=== PATIENT | female | born 1960 | race Caucasian/White ===

== ENCOUNTER → 2020-07-02 08:38 | Outpatient (BNVA) | payer BC, SELFPAY | PROVIDERS: Family Provider Nurse Practitioner; PCP Nurse Practitioner; Visit Provider Nurse Practitioner | DX: D72.9 Disorder of white blood cells, unspecified (principal) | CPT/HCPCS: 85025 ==

== ENCOUNTER → 2020-08-07 16:55 | Outpatient (BNVA) | payer BC, SELFPAY | PROVIDERS: PCP Nurse Practitioner; Visit Provider Surgery | DX: Z11.59 Encounter for screening for other viral diseases (principal) | CPT/HCPCS: 87635 ==

== ENCOUNTER 2020-08-13 06:10 | Day surgery (SDC) | payer BC, SELFPAY ==
[2020-08-07 12:37] VITALS: BMI 29.9
[2020-08-13 06:30] VITALS: BP 119/68; PULSE 62; RESP 18; TEMP 36.6; O2SAT 98
[2020-08-13] MEDS: sodium chloride 0.9% 1,000 ML 30 ML IV (06:47)
--- NOTE | 2020-08-13 06:54 | ANES.PREANE2 ---
Pre-Anesthetic Assessment Pre-Anesthetic Assessment: Height/Weight: Height 1.65 m Weight 81.647 kg Temp Pulse Resp BP Pulse Ox 97.8 F 62 18 119/68 98 08/13/20 06:30 08/13/20 06:30 08/13/20 06:30 08/13/20 06:30 08/13/20 06:30 Preop Diagnosis: Screening Proposed Procedure: Operation Date: 08/13/20 07:00 Proposed Procedures p Colonoscopy 78585 Z12.11(Not Applicable) - Boy Blandon MD Familial anesthetic complications: None Was Beta Sj taken within 24 hours: N/A Last intake: Intake Last Liquid Date 08/12/20 Last Liquid Time 22:00 Last Solid Date 08/11/20 Last Solid Time 18:00 Social: Social History: No alcohol and No tobacco Exam: Pre-Anes Outpt Exam: alert, oriented x 3, clear to auscultation bilaterally and regular rate & rhythm Airway: Cervical ROM: WNL MP: 3 Dentition: Full Pulmonary: Comments: hx bronchial asthma 2 years ago ( no issues since or before) Metabolic: Metabolic: Thyroid Anesthetic Plan: ASA status: 2 Anesthesia: MAC Risk of > 500 ml blood loss (7ml/kg in children): No Meds/Allergies Current Medications: Current Medications Generic Name Dose Route Start Last Admin Trade Name Freq PRN Reason Stop Dose Admin Sodium Chloride 1,000 mls @ 30 ml s/hr 08/13/20 06:15 08/13/20 06:47 Sodium Chloride 0.9% IV 08/14/20 06:14 30 mls/hr .Q24H ARABELLA Administration PFSH Anesthesia PFSH: Medical History (Updated 07/04/20 @ 11:05 by HÉCTOR Gunter) Adult onset hypothyroidism Vitamin D deficiency Surgical History (Updated 07/04/20 @ 11:08 by HÉCTOR Gunter) History of dilation and curettage 2003,2006 History of hysterectomy partial 2007 Family History Other Cancer Diabetes FH: CVA (cerebrovascular accident) Hypertension Social History Smoking and tobacco status: never smoked Second hand smoke exposure: No Smoking risk assessment/counseling performed?: No Alcohol intake: never Desire information about alcohol rehabilitation?: No Counseling given: No Desire information about substance/drug rehabilitation?: No Counseling given: No Adopted: No Caregiver/support person: No Lives independently: Yes Marital status: Single Number of children: 3 History of recent travel: No Current gender identity: Female Data Anesthesia Cardiac Studies: No Data to Display
--- NOTE | 2020-08-13 07:00 | PM.HP ---
Providers/Chief Complaint Primary Care Provider: HÉCTOR Gunter Chief Complaint: screening History of Present Illness Avis Clemons is a 60 year old female with no family history of colon cancer who was on one occasion was noted to be anemic which has resolved. Patient has any change in bowel habits abdominal pain or bleeding per rectum Review of Systems General: Reports: 10 or more systems reviewed and unremarkable except in HPI and below Medications/Allergies Home Medications Medication Instructions Recorded Confirmed Last Taken Type albuterol sulfate 90 mcg/actuation 2 puff INHALATION TID PRN gm 07/04/20 08/13/20 Unknown History aerosol inhaler beclomethasone dipropionate 80 2 inh INHALATION BID PRN gm 07/04/20 08/07/20 Unknown History mcg/actuation HFA breath activated aerosol cholecalciferol (vitamin D3) 125 125 mcg PO DAILY #30 cap 07/04/20 08/13/20 08/11/20 Rx mcg (5,000 unit) capsule omega-3 fatty acids 1,000 mg 1,000 mg PO BID #60 cap 07/04/20 08/13/20 08/11/20 Rx capsule thyroid (pork) 15 mg tablet 15 mg PO DAILY #30 tab 07/04/20 08/13/20 08/13/20 Rx Allergies Allergy/AdvReac Type Severity Reaction Status Date / Time paroxetine [From Paxil] Allergy elevated BP Verified 07/20/20 16:27 Penicillins Allergy swelling Verified 07/20/20 16:27 PFSH Acute PFSH: Medical History Adult onset hypothyroidism Vitamin D deficiency Surgical History History of dilation and curettage 2003,2005 History of hysterectomy partial 2007 Family History Other Cancer Diabetes FH: CVA (cerebrovascular accident) Hypertension Social History Smoking and tobacco status: never smoked Second hand smoke exposure: No Smoking risk assessment/counseling performed?: No Alcohol intake: never Desire information about alcohol rehabilitation?: No Counseling given: No Desire information about substance/drug rehabilitation?: No Counseling given: No Adopted: No Caregiver/support person: No Lives independently: Yes Marital status: Single Number of children: 3 History of recent travel: No Current gender identity: Female Vitals/I&O/Wt Last Vital Signs Temp 97.8 F 08/13/20 06:30 Pulse 62 08/13/20 06:30 Resp 18 08/13/20 06:30 BP 119/68 08/13/20 06:30 Pulse Ox 98 08/13/20 06:30 Physical Exam Narrative: EXAM NARRATIVE: HEENT: Normocephalic Eye: Sclera /conjunctiva normal Neurological: Oriented to place person and time Skin: Intact, no lesions appreciated on gross exam A&P Assessment and plan (1) Encounter for screening colonoscopy: Status: Resolved Attestations Medical Necessity Statement*: Screening colonoscopy Coding Level of Care Code Acute [employer]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
[2020-08-13 07:29] VITALS: BP 116/75; PULSE 64; RESP 18; TEMP 36.1; O2SAT 98
[2020-08-13 07:53] VITALS: BP 153/86; PULSE 62; RESP 18; O2SAT 100
--- NOTE | 2020-08-13 08:00 | ANE.PACU2 ---
Inpatient post-anesthesia follow up: Airway intact: Yes Vital signs: Temperature 97 F Pulse Rate 62 Respiratory Rate 18 Blood Pressure 153/86 Pulse Oximetry 100 Oxygen Delivery Me thod Room Air Oxygen Flow Rate Fraction of Inspir ed Oxygen Hydration adequate: Yes Nausea and vomiting: No Pain level: 1 Mental status: Baseline
== END 2020-08-13 07:59 | disposition home or self-care (01) ==
PROVIDERS: PCP Nurse Practitioner; Visit Provider Surgery
PROC: 0DJD8ZZ Inspection of Lower Intestinal Tract, Via Natural or Artificial Opening Endoscopic (ICD-10-PCS; CPT 45378; principal; 2020-08-13 07:00)
DX: Z12.11 Encounter for screening for malignant neoplasm of colon (principal); D12.2 Benign neoplasm of ascending colon; K57.30 Diverticulosis of large intestine without perforation or abscess without bleeding; E03.9 Hypothyroidism, unspecified
CPT/HCPCS: 12345; 45380; 88305; J2704; J7030

== ENCOUNTER 2020-08-20 08:55 | Outpatient (CLI) | payer BC, SELFPAY ==
--- NOTE | 2020-08-20 09:30 | MM_ITS ---
WS: [id number] BILATERAL SCREENING DIGITAL MAMMOGRAM WITH CAD HISTORY: Screening exam. COMPARISON: 07/15/2017 Bilateral CC and MLO views submitted. Computer aided detection analyzed. Breast composition: There are scattered areas of fibroglandular density. No suspicious masses, microc alcifications or architectural distortion. MM/[place] [id number] IMPRESSION: BI-RADS: 1-Negative FOLLOW UP: 1 Year Follow-up
== END 2020-08-20 08:56 | disposition home or self-care (01) ==
PROVIDERS: PCP Nurse Practitioner; Visit Provider Nurse Practitioner
DX: Z12.31 Encounter for screening mammogram for malignant neoplasm of breast (principal)
CPT/HCPCS: 77067

== ENCOUNTER → 2020-09-05 08:33 | Outpatient (BNVA) | payer BC, SELFPAY | PROVIDERS: PCP Nurse Practitioner; Visit Provider Nurse Practitioner | DX: D64.9 Anemia, unspecified (principal) | CPT/HCPCS: 85025 ==

== ENCOUNTER → 2020-11-13 16:09 | Outpatient (BNVA) | payer BC, SELFPAY | PROVIDERS: PCP Nurse Practitioner; Visit Provider Nurse Practitioner | DX: E03.8 Other specified hypothyroidism (principal) | CPT/HCPCS: 80053; 84443; 85025 ==

== ENCOUNTER 2021-02-04 14:04 | Outpatient (CLI) | payer BC, SELFPAY ==
--- NOTE | 2021-02-04 14:15 | XRR_ITS ---
PROCEDURE INFORMATION: Exam: XR Right Ribs with PA Chest Exam date and time: 02/04/2021 2:37 PM Age: 61 years old Clinical indication: Pain and injury or trauma; Fall; Rib area; Blunt trauma (contusions or hematomas); Chest wall pain; Right; Injury date: 01/27/21; Injury details: Running with dog, tripped and fell; Additional info: Right rib pain TECHNIQUE: Imaging protocol: XR Right ribs with PA chest. Views: 3 views COMPARISON: CR Chest 2 views* [id number] 06/12/2015 5:13 PM FINDINGS: Lungs: Unremarkable. No consolidation. Pleural spaces: Unremarkable. No pleural effusion. No pneumothorax. Heart/Mediastinum: Unremarkable. No cardiomegaly. Bones/joints: No acute findings. XR/XR ribs RT mn 3V w [id number] IMPRESSION: No acute findings.
== END 2021-02-04 14:05 | disposition home or self-care (01) ==
LOC: RAD 14:08
PROVIDERS: PCP Nurse Practitioner; Visit Provider Nurse Practitioner
DX: R07.81 Pleurodynia (principal)
CPT/HCPCS: 71101

== ENCOUNTER → 2021-04-23 09:39 | Outpatient (BNVA) | payer BC, SELFPAY | PROVIDERS: PCP Nurse Practitioner; Visit Provider Dermatology | DX: Z01.89 Encounter for other specified special examinations (principal) ==

== ENCOUNTER 2021-09-03 09:33 | Outpatient (CLI) | payer BC, SELFPAY ==
[2021-09-03 13:17] LABS: Basophils % 0.3 %; Eosinophils % 0.3 %; Hematocrit 36.1 % (37.0-47.0); Hemoglobin 11.7 g/dL (11.5-15.3); Lymphocytes # 1.5 10^3/uL (0.8-4.8); Mean Corpuscular HGB Conc 32.4 g/dL (30.0-36.0); Mean Corpuscular Hemoglobin 28.5 pg (28.0-34.0); Mean Platelet Volume 10.9 fL (7.4-10.4); Monocytes # 0.3 10^3/uL (0.2-0.9); Monocytes % 7.7 %; Neutrophils # 1.81 10^3/uL (1.8-7.7); Neutrophils % 49.3 %; Nucleated Red Blood Cells % 0 %; Platelet Count 161 10^3/cmm (130-400); Red Cell Distribution Width 12.4 % (12.1-15.1); White Blood Count 3.7 10^3/uL (4.0-10.0)
[2021-09-03 13:18] LABS: LAB Peripheral Smear Sent for Review
[2021-09-03 13:59] LABS: Alanine Aminotransferase 20 U/L (0-33); Albumin Level 4.7 g/dL (3.5-5.2); Alkaline Phosphatase 90 IU/L (35-105); Anion Gap 14.7 (5-19); Aspartate Amino Transferase 14 U/L (0-32); Blood Urea Nitrogen 16 mg/dL (6-20); Calcium 9.6 mg/dL (8.5-10.5); Carbon Dioxide 28 mmol/L (22-29); Chloride 102 mmol/L (98-107); Ferritin 168 ng/mL (15-150); Globulin 2.7 g/dL (1.3-4.6); Glomerular Filtration Rate 85.6 mL/min (90-130); Glucose 97 mg/dL (65-115); Iron 83 ug/dL (37-145); Lactate Dehydrogenase 219 U/L (135-214); Osmolality Calculated 291 mOsm/kg (285-295); Percent Saturation 26.1 % (20-50); Potassium 4.7 mmol/L (3.5-5.1); Sodium 140 mmol/L (136-145); Total Bilirubin 0.4 mg/dL (0.15-1.2); Total Iron Binding Capacity 317 mcg/dl; Total Protein 7.4 g/dL (6.6-8.7); Unsaturated Iron Binding 234 ug/dL (112-347); Vitamin B12 788 pg/mL (232-1245)
[2021-09-03 14:09] LABS: Folate Level 15.5 ng/mL (4.8-37.3)
--- NOTE | 2021-09-03 19:17 | ONC CON_ITS ---
Dr. Mooney New Patient Note Patient: Avis Clemons Unit #: [id number]: [id number] Dicatated By: Esdras Mooney M.D.Date of Visit: Sep 03, 2021 Onc MED New Patient/Consult Referring Physician: Afia Barajas Chief Complaint: Neutropenia. History of Present Illness: This is a 61 year-old woman with moderately severe neutropenia. This patient has been in good general health. She has hypothyroidism and she has gluten sensitive enteropathy. She had been significantly anemic in the past, with her hemoglobin getting as low as 7 g, but it did resolve following a partial hysterectomy in 2007. She has been seeing Alcon Meyer for primary care, and during the past year she has had gradually worsening neutropenia. Her most recent CBC, from 04/23/2021, showed hemoglobin borderline low at 11.4 g with hematocrit 36.1%. The red cell indices were not normal. The white blood cell count was 2900 with the differential showing 32% neutrophils, 51% lymphocytes, and 13% monocytes. The absolute neutrophil count was just under 1000. The platelet count was normal at 142,000. An earlier CBC from 07/02/2020 showed normal hemoglobin at 12.2 g with white blood cell count 4200 and platelet count 150,000. She has been feeling okay. She says she gets tired more easily than she used to, but she does work a lot of hours. She still does all her normal activity. Her ECOG score is 0. She has good appetite. Her weight has been up and down. She has not had fever or night sweats. She does have some hot flashes. She has seasonal allergies. She does not complain of shortness of breath. She does have some cough and some chest pain associated with acid reflux. Her reflux symptoms typically occur 1 to 2 hours after eating. She has been getting some benefit taking Guterace. She occasionally uses an antacid. She sometimes has nausea and she also is prone to having constipation. She has no complaints other than some mild stress incontinence. She has occasional crackling in her joints. She has had back pain, that has been somewhat worse during the past year. She reports having eye migraines . She sometimes gets lightheaded. She has some numbness in her toes and she occasionally has tingling in her fingers. She said some burning in her right leg lateral to the knee. She does not complain of anxiety or depression, she has been on treatment for depression in the past. Past Medical History: Her medical history includes guten sensitive enteropathy, hypothyroidism, and vtamin D deficiency. She has a history of anemia, and she has a history of depression. Past Surgical History: Her surgical/procedural history includes colonoscopy in 2019, prtial hysterectomy in 2007, and rght inguinal hernia repair in 1986. Medications: Albuterol Sulfate HFA 2 Puff(s) (of 108 (90 base) mcg/act) Aerosol, solution Inhalation t.i.d. PRN, Beclomethasone Diprop HFA 2 Puff(s) (of 80 mcg/act) Aerosol, Breath Activated Inhalation b.i.d. PRN, Cholecalciferol 1 Capsule (of 125 mcg ) Oral daily, Fish Oil 1 (1000 mg) Capsule Oral b.i.d., Ibuprofen 1 Tablet (of 800 mg) Oral q 8 hours, Levothyroxine Sodium 1 Tablet (of 25 mcg) Oral daily, Melatonin 1 Tablet Oral at bedtime, Valerian Root Plus 1 Tablet Capsule Oral at bedtime, [employer] Eye Health 1 Tablet Capsule Oral daily, Vitamin B-Complex 1 Tablet Oral daily, Vitamin C Plus 1 Tablet Oral daily Allergies: gluten , PARoxetine HCl, and Penicillins. Social History: Ms. Clemons is legally . 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 She is a non-smoker. She has occasional alcohol use. Family History: Father had COPD and diabetes. He at age 77. Her mother, 2 brothers, and a sister are all living and in good health. Her maternal grandfather had some type of bone marrow cancer. Her brother' granddaughter is currently being treated for acute lymphocytic leukemia. Review Of Symptoms: Constitutional - She says she gets tired, but she works a lot of hours. She has normal activity. Her appetite is good. Her weight is up and down. She has not had fever or night sweats, but she does have hot flashes. ECOG score is 0, Allergic/Immunologic - She has gluten sensitivity, Eyes - She has occasional visual blurring, ENMT - No hearing loss. She has tinnitus. She has seasonal allergies. No mouth sores. No sore throat or difficulty swallowing, Hematologic/Lymphatic - She has easy bruising, Respiratory - No shortness of breath. She has cough associated with acid reflux. No pleuritic pain or hemoptysis, Cardiovascular - She occasionally has chest pain. No palpitations, Gastrointestinal - No nausea or vomiting. She has acid reflux, typically 1-2 hours post prandially. No diarrhea. She has constipation. No blood in the stool or black stools, Genitourinary (F) - No dysuria or hematuria. No urinary frequency. She has mild stress incontinence, Musculoskeletal - She sometimes has crackling in her joints. She has back pain which has been somewhat worse during the past year, Integumentary - No skin rash or other skin changes, Neurologic - She has eye migraines . She occasionally gets lightheaded. She has some numbness in her toes. She occasionally has tingling in her fingers. She has had burning in her right leg, Psychiatric - She has had depression in the past. She has trouble falling asleep. Vital Signs: Performed on Sep 03, 2021 10:32: 9, 0, 30.45 (HIGH), 1.90 sq.m, 65 in, 99 %, 73 /min, 18 /min, 133/90 mm(hg), 97.2 F (LOW), and 183 lbs (HIGH). Physical Examination: Constitutional - She appears to be in good general health, Eyes - Sclerae nonicteric. Conjunctivae clear, ENMT - No lesions noted in the oral cavity, Neck - No mass or thyromegaly, Hematologic/Lymphatic - No cervical, clavicular, or axillary adenopathy, Respiratory - Lungs are clear with good air movement bilaterally, Cardiovascular - Heart rhythm is regular. There is no murmur, gallop, or rub noted, Abdomen - Soft and non-tender. Liver and spleen are not enlarged. There is no abdominal mass or ascites noted and there is no inguinal adenopathy, Back/Spine - No spine or CVA tenderness noted, Extremities - No edema. Pedal pulses are palpable bilaterally, Integumentary - No rashes. No suspicious skin lesions noted, Neurologic - No focal neurologic deficits noted. Problem List: 1. Moderately severe neutropenia. Etiology is uncertain. 2. Hypothyroidism. 3. Gluten sensitive enteropathy. 4. History of anemia, presumably iron deficiency. 5. History of depression. Problems Addressed with this Encounter and Plan: Patient with moderately severe neutropenia. Etiology is uncertain, but it does not appear to be medication related. Given the duration, it is also probably not postinfectious. It certainly could be autoimmune. B12 deficiency, folate deficiency, and copper deficiency all need to be excluded. Myelodysplastic syndrome also would be a possibility, but at this point it appears unlikely. She will have additional laboratory studies today to include CBC, comprehensive metabolic profile, sed rate and CRP level, JANUSZ screen, B12 and folate levels, and copper level. Given her prior history, I also will check serum iron studies. I will review the blood smear. She will have further evaluation as indicated. Signed By: Esdras Mooney M.D. <<Signature on File>>
[2021-09-04 14:24] LABS: Erythrocyte Sedimentation Rate 19 mm/hr (0-15)
[2021-09-06 16:39] LABS: ANA SCREEN, IFA NEGATIVE (NEGATIVE)
[2021-09-06 17:47] LABS: Copper Level 113 mcg/dL (70-175)
== END 2021-09-03 09:34 | disposition home or self-care (01) ==
LOC: ONCMED 09:35
PROVIDERS: PCP Nurse Practitioner; Visit Provider Internal Medicine Medical Oncology
DX: D70.2 Other drug-induced agranulocytosis (principal); E03.9 Hypothyroidism, unspecified; K90.0 Celiac disease; D50.9 Iron deficiency anemia, unspecified; F32.9 Major depressive disorder, single episode, unspecified; Z79.899 Other long term (current) drug therapy
CPT/HCPCS: 36415; 80053; 82525; 82607; 82728; 82746; 83540; 83550; 83615; 84443; 85025; 85651; 86141; 86160; 86162; 86235; 86255; 86376; 99205

== ENCOUNTER 2021-09-12 13:16 | Outpatient (CLI) | payer BC, SELFPAY ==
[2021-09-12 13:37] VITALS: BP 124/78; PULSE 77; RESP 18; TEMP 36.2; O2SAT 97; BMI 29.6
[2021-09-12 14:13] VITALS: BP 119/73; PULSE 75; RESP 18; TEMP 36.3; O2SAT 97
[2021-09-12 15:02] VITALS: BP 123/77; PULSE 70; RESP 18; TEMP 37.1; O2SAT 93
== END 2021-09-12 13:17 | disposition home or self-care (01) ==
LOC: OPS 13:20
PROVIDERS: PCP Nurse Practitioner; Visit Provider Nurse Practitioner
DX: U07.1 COVID-19 (principal)
CPT/HCPCS: 96365

== ENCOUNTER 2021-12-10 12:51 | Outpatient (CLI) | payer BC, SELFPAY ==
[2021-12-10 14:05] LABS: Basophils % 0.3 %; Hematocrit 36.8 % (37.0-47.0); Lymphocytes # 1.8 10^3/uL (0.8-4.8); Lymphocytes % 47.1 %; Mean Corpuscular HGB Conc 32.6 g/dL (30.0-36.0); Mean Corpuscular Hemoglobin 28.4 pg (28.0-34.0); Mean Platelet Volume 11.1 fL (7.4-10.4); Monocytes # 0.4 10^3/uL (0.2-0.9); Neutrophils # 1.61 10^3/uL (1.8-7.7); Neutrophils % 41.1 %; Nucleated Red Blood Cells % 0 %; Platelet Count 143 10^3/cmm (130-400); Red Blood Count 4.23 10^6/uL (4.1-5.3); Red Cell Distribution Width 12.5 % (12.1-15.1); White Blood Count 3.9 10^3/uL (4.0-10.0)
[2021-12-10 14:10] LABS: LAB Peripheral Smear Sent for Review
[2021-12-10 14:25] LABS: Erythrocyte Sedimentation Rate 16 mm/hr (0-15)
--- NOTE | 2021-12-14 11:42 | ONC FU_ITS ---
Dr. Mooney Patient Follow-Up Note Patient: Avis Clemons Unit #: [id number]: 1960 Dicatated By: Esdras Mooney M.D.Date of Visit:Dec 10, 2021 Onc Med Follow-up/Prog Note Chief Complaint: Neutropenia. History of Present Illness: This is a 61 year-old woman with moderately severe neutropenia. I had seen her initially in September 2021. During the preceding year she had gradually worsening neutropenia. Her CBC from 04/23/2021 showed hemoglobin borderline low at 11.4 g with hematocrit 36.1%. The red cell indices were not normal. The white blood cell count was 2900 with the differential showing 32% neutrophils, 51% lymphocytes, and 13% monocytes. The absolute neutrophil count was just under 1000. The platelet count was normal at 142,000. An earlier CBC from 07/02/2020 showed normal hemoglobin at 12.2 g with white blood cell count 4200 and platelet count 150,000. Her laboratory studies on 09/03/2021 included CBC showing hemoglobin 11.7 g with hematocrit 36.1%. The red cell indices were normal. The white blood cell count was 3700 with absolute neutrophil count 1800. The platelet count was normal at 161,000. Sed rate and C-reactive protein were minimally elevated at 19 mm/h and 0.390 mg/dL respectively. Comprehensive metabolic profile was unremarkable. The serum iron studies showed normal transferrin saturation at 26%. Ferritin was slightly elevated at 168 ng/mL. B12 and folate levels were normal, and the TSH level was normal. With her neutrophil count just mildly decreased, I had initially just recommended observation/expectant management. Her other medical illnesses include hypothyroidism, gluten sensitive enteropathy, and vitamin D deficiency. She has a history of iron deficiency anemia with her hemoglobin getting as low as 7 g, but it had resolved following a partial hysterectomy in 2007. She also has a history of depression. She is a non-smoker. She is seen for a followup visit. She is still working, but overall she has been less active. She has been having pain in her lower back on the left side. She says it hurts most of the time, though some days are worse than others. Her ECOG score is 1. She has good appetite. She has not had fever or night sweats. She sometimes has hot flashes. In November she developed sinus congestion/drainage, earache, and chest congestion, but that all gradually improved. She has just occasional cough now. She has had sore throat off and on. She does not complain of shortness of breath. She has had chest pain at times, which she thinks is stress related. She has nausea, which comes and goes, and she also has acid reflux. She has been taking omeprazole and Maalox. Bowel and bladder function have been okay, though on one occasion she did pass a tiny blood clot in her urine. She also has some joint pain, mainly in the hands, and she occasionally has neck pain. She sometimes has headache. She has not recently had dizziness. She sometimes gets numbness in her legs after sitting. Medications: Albuterol Sulfate HFA 2 Puff(s) (of 108 (90 base) mcg/act) Aerosol, solution Inhalation t.i.d. PRN, Beclomethasone Diprop HFA 2 Puff(s) (of 80 mcg/act) Aerosol, Breath Activated Inhalation b.i.d. PRN, Cholecalciferol 1 Capsule (of 125 mcg ) Oral daily, Fish Oil 1 (1000 mg) Capsule Oral b.i.d., Ibuprofen 1 Tablet (of 800 mg) Oral q 8 hours, Levothyroxine Sodium 1 Tablet (of 25 mcg) Oral daily, Melatonin 1 Tablet Oral at bedtime, Valerian Root Plus 1 Tablet Capsule Oral at bedtime, [employer] [facility] Health 1 Tablet Capsule Oral daily, Vitamin B-Complex 1 Tablet Oral daily, Vitamin C Plus 1 Tablet Oral daily Allergies: gluten , PARoxetine HCl, and Penicillins. Vital Signs: Performed on Dec 10, 2021 14:37 Height - 65.00 in Weight - 190.0 lbs (HIGH) BSA - 1.94 sq.m BMI - 31.62 (HIGH) Temperature - 97.6 F (LOW) Pulse - 88 /min Respiration - 16 /min BP - 149/82 mm(hg) (HIGH) O2 Sat - 97 % Pain - 2 Fatigue - 3 Physical Examination: Constitutional - She looks pretty good generally, Eyes - Sclerae nonicteric. Conjunctivae clear, ENMT - No lesions noted in the oral cavity, Hematologic/Lymphatic - No cervical, clavicular, or axillary adenopathy, Respiratory - Lungs are clear with good air movement bilaterally, Cardiovascular - Heart rhythm is regular. There is no murmur, gallop, or rub noted, Abdomen - Soft. Liver and spleen are not enlarged. There is no abdominal mass or ascites noted and there is no inguinal adenopathy, Back/Spine - There is mild tenderness in the left lower back, Extremities - No edema, Integumentary - No rashes. No suspicious skin lesions noted, Neurologic - No focal neurologic deficits noted. Lab/Imaging: Test performed on Dec 10, 2021 13:54 ESR (Sed Rate) 16 mm/hr WBC 3.9 10 3/uL RBC 4.23 10 6/uL HGB 12.0 g/dL HCT 36.8 % MCV 87.0 fl MCH 28.4 pg MCHC 32.6 g/dL RDW 12.5 % Platelet Count 143 10 3/cmm MPV 11.1 fL Neutrophils 1.61 10 3/uL Lymphocytes 1.8 10 3/uL Monocytes 0.4 10 3/uL Eosinophils 0.0 10 3/uL Basophils 0.0 10 3/uL Neutrophil % 41.1 % Lymphocyte % 47.1 % Monocyte % 11.0 % Eosinophil % 0.0 % Basophils % 0.3 % NRBC % 0 % Problem List: 1. Moderately severe neutropenia. Etiology is uncertain. 2. Hypothyroidism. 3. Gluten sensitive enteropathy. 4. History of anemia, presumably iron deficiency. 5. History of depression. Problems Addressed with this Encounter and Plan: Patient with mild to moderately severe neutropenia. Etiology is uncertain. It does not appear to be medication related. It could be autoimmune. The other concern is the possibility of a developing myelodysplastic syndrome. However, as long as her blood counts remain stable, she can continue on expectant management. She will have a repeat CBC at [facility] in 3 months, and I will see her for a follow-up visit in 6 months. Signed By: Esdras Mooney M.D. <<Signature on File>>
== END 2021-12-10 12:52 | disposition home or self-care (01) ==
LOC: ONCMED 13:02
PROVIDERS: PCP Nurse Practitioner; Visit Provider Internal Medicine Medical Oncology
DX: D70.9 Neutropenia, unspecified (principal); E03.9 Hypothyroidism, unspecified; E55.9 Vitamin D deficiency, unspecified; F32.A Depression, unspecified; Z79.899 Other long term (current) drug therapy
CPT/HCPCS: 36415; 85025; 85651; 99214

== ENCOUNTER → 2022-04-22 13:24 | Outpatient (BNVA) | payer BC, SELFPAY | PROVIDERS: PCP Nurse Practitioner; Visit Provider Nurse Practitioner | DX: E03.8 Other specified hypothyroidism (principal); E11.65 Type 2 diabetes mellitus with hyperglycemia; R03.0 Elevated blood-pressure reading, without diagnosis of hypertension | CPT/HCPCS: 80053; 84443; 85025 ==

== ENCOUNTER 2022-06-16 12:51 | Oncology outpatient (recurring) (ONCR) | payer BC, SELFPAY ==
[2022-06-16 20:15] LABS: Add Urine Microscopic? NO; Protein Urine Neg (Negative); Specific Gravity, Urine 1.005 (1.005-1.030); Urine Appearance Clear (CLEAR); Urine Color Yellow (Yellow); pH Urine 6 (5-7)
[2022-06-16 20:16] LABS: Bilirubin Urine Neg (Negative); Blood Urine Neg (Negative); Charge for UA Resulting for Rev; Glucose Urine UA Norm (Normal); Ketones Urine Negative (Negative); Leukocyte Esterase Urine Negative (Negative); Nitrate Urine Negative (Negative); Urobilinogen Urine Norm (Negative)
== END 2022-07-02 23:59 | disposition home or self-care (01) ==
PROVIDERS: PCP Nurse Practitioner; Visit Provider Internal Medicine Medical Oncology
DX: R30.0 Dysuria (principal)
CPT/HCPCS: 81003

== ENCOUNTER 2022-06-23 09:56 | Emergency (ER) | payer BC, SELFPAY ==
[2022-06-23 09:59] VITALS: BP 130/72; PULSE 74; RESP 18; TEMP 36.8; O2SAT 99; BMI 29.2
--- NOTE | 2022-06-23 10:31 | ED_ITS ---
HPI - Abdominal Pain General: Chief Complaint: Abdominal Pain Stated Complaint: Abd pain Time Seen by Provider: 06/23/22 10:05 History of Present Illness: 62-year-old female presents emergency room complaint left lower quadrant pain that began last night. No nausea vomiting or diarrhea but she has had some loose what she describes as abdomen like stools. No fever sweats or chills. She has had pain like this before not nearly as intense previous colonoscopy showed benign polyps no other significant findings. No acute hematochezia or melena no black tarry stools. MD elicited complaint: abdominal pain Onset (ago): hour(s) (12 to 15 hours) Pain Consistency: constant Location: LLQ Severity: moderate Quality: cramping Radiation: none Migration to: no migration Exacerbating factors: nothing Relieving factors: nothing Associated Symptoms: Reports change in stool character, GI cramping, loose stools and poor appetite; Denies anorexia, belching, bloating, change in bowel habits, chills, coffee ground emesis, constipation, diarrhea, dyspepsia, dysuria, excessive flatus, fever(s), heartburn, hematochezia, hematuria, hematemesis, fecal incontinence, melena, nausea, syncope and vomiting Review of Systems Const: Denies: fever(s), chills, fatigue or malaise ENMT: Denies: throat pain, ear or mastoid pain, nasal discharge or nasal congestion Card: Denies: chest pain, palpitations, irregular heart rhythm, edema or syncope Resp: Denies: dyspnea, productive cough or non-productive cough GI: Reports: abdominal pain, GI cramping and change in stool character; Denies: nausea, vomiting, hematemesis, coffee ground emesis, heartburn, diarrhea, constipation, bloating, belching, excessive flatus, fecal incontinence, change in bowel habits, hematochezia or melena : Denies: flank pain, difficulty voiding, dysuria, urinary frequency, urinary urgency or hematuria Skin/Breast: Denies: rash or pruritus PFSH ED PFSH: Medical History Adult onset hypothyroidism Chronic leukopenia History of anemia History of depression Vitamin D deficiency Surgical History H/O right inguinal hernia repair History of colonoscopy with polypectomy (08/13/20) History of dilation and curettage 2003,2005 History of hysterectomy partial 2007 Family History Grandfather CAD (coronary artery disease) Cancer kidney cancer Stroke Brother CAD (coronary artery disease) Father Lung disease Psychiatric illness Family/Other Psychiatric illness Grandmother Stroke Other Anesthesia complication Diabetes FH: CVA (cerebrovascular accident) Hypertension Denies family history of Clotting disorder Dementia Hyperlipidemia Suicide Bleeding disorder Social History Smoking and tobacco status: never smoked Second hand smoke exposure: No Smoking risk assessment/counseling performed?: No Alcohol intake: never Desire information about alcohol rehabilitation?: No Counseling given: No Desire information about substance/drug rehabilitation?: No Counseling given: No Adopted: No Caregiver/support person: No Lives independently: Yes Marital status: Single Number of children: 3 service: No Current occupational exposures/hazards: No History of recent travel: No Current gender identity: Female Physical Exam Const: COMMON NORMALS: no acute distress GENERAL APPEARANCE: cooperative and comfortable ORIENTATION/CONSCIOUSNESS: Yes awake, Yes oriented to person, Yes oriented to place and Yes oriented to time HENMT: COMMON NORMALS: normocephalic, atraumatic, hearing grossly normal bilaterally and external ears normal HEAD & SCALP: normocephalic and atraumatic EXTERNAL EAR: Yes external ears normal Eye: COMMON NORMALS: Equal, round and reactive pupils present, EOMs intact bilaterally, conjunctivae normal and no scleral icterus CONJUNCTIVA: Yes conjunctivae normal PUPIL: Yes Equal, round and reactive pupils present Neck/C-Spine: COMMON NORMALS: full ROM, no lymphadenopathy, supple and no JVD Lymph: LYMPHATIC: no lymphadenopathy noted and no lymphedema noted Resp: COMMON NORMALS: normal respiratory effort, No retractions, No use of accessory muscles and clear to auscultation bilaterally AUSCULTATION: clear to auscultation bilaterally Cardio: COMMON NORMALS: no JVD, regular rate, regular rhythm and No murmurs present (Cardio) RATE: regular rate RHYTHM: regular rhythm GI: COMMON NORMALS: No hepatosplenomegaly present AUSCULTATION: Yes normoactive bowel sounds PALPATION: Yes Tenderness to palpation present (GI) Details: LLQ, No Guarding due to palpation present (GI) and Yes No hepatosplenomegaly present OTHER: No peritonitis signs Extremity: COMMON NORMALS: normal to inspection, capillary refill normal, no c lubbing, cyanosis or edema, no calf tenderness and no pedal edema Neuro: SENSORIUM/ORIENTATION: Yes oriented to person, Yes oriented to place and Yes oriented to time Skin: COMMON NORMALS: no rashes or lesions noted GENERAL SKIN EXAM: no rashes or lesions noted Course Vital Signs: Vital signs: Vital Signs Temperature 98.3 F 06/23/22 09:59 Pulse Rate 74 06/23/22 09:59 Respiratory Rate 18 06/23/22 09:59 Blood Pressure 130/72 06/23/22 09:59 Pulse Oximetry 99 06/23/22 09:59 Oxygen Delivery Me thod 06/23/22 09:59 MDM - Abdominal Pain Medical Decision Making CT does not show any significant pathologic findings. Suspect potential bowel cramp irritation clear liquid diet follow-up as needed if worsens return primary care. Medical Records I reviewed the patient's medical records. Lab Data I reviewed the patient's lab results. : 06/23/22 10:38 06/23/22 10:38 Labs/Radiology: Radiology Impressions Abdomen/Pelvis CT 06/23/22 13:09 IMPRESSION: No acute abdominal or pelvic findings. Laboratory Results WBC 3.7 10^3/uL (4.0-10.0) L 06/23/22 10:38 RBC 3.96 10^6/uL (4.1-5.3) L 06/23/22 10:38 Hgb 11.4 g/dL (11.5-15.3) L 06/23/22 10:38 Hct 35.0 % (37.0-47.0) L 06/23/22 10:38 MCV 88.4 fl (81-99) 06/23/22 10:38 MCH 28.8 pg (28.0-34.0) 06/23/22 10:38 MCHC 32.6 g/dL (30.0-36.0) 06/23/22 10:38 RDW 12.3 % (12.1-15.1) 06/23/22 10:38 Plt Count 145 10^3/cmm (130-400) 06/23/22 10:38 MPV 11.0 fL (7.4-10.4) H 06/23/22 10:38 Neut % (Auto) 47.9 % 06/23/22 10:38 Lymph % (Auto) 41.3 % 06/23/22 10:38 [place] % (Auto) 9.7 % 06/23/22 10:38 Eos % (Auto) 0.3 % 06/23/22 10:38 Baso % (Auto) 0.3 % 06/23/22 10:38 Neut # (Auto) 1.79 10^3/uL (1.8-7.7) L 06/23/22 10:38 Lymph # (Auto) 1.5 10^3/uL (0.8-4.8) 06/23/22 10:38 [place] # (Auto) 0.4 10^3/uL (0.2-0.9) 06/23/22 10:38 Eos # (Auto) 0.0 10^3/uL (0.0-0.8) 06/23/22 10:38 Baso # (Auto) 0.0 10^3/uL (0.0-0.1) 06/23/22 10:38 Nucleated RBC % (auto) 0 % 06/23/22 10:38 Nucleated RBCs # 0.0 /100WBC 06/23/22 10:38 Sodium 139 mmol/L (136-145) 06/23/22 10:38 Potassium 4.5 mmol/L (3.5-5.1) 06/23/22 10:38 Chloride 103 mmol/L (98-107) 06/23/22 10:38 Carbon Dioxide 26 mmol/L (22-29) 06/23/22 10:38 Anion Gap 14.5 (5-19) 06/23/22 10:38 BUN 17 mg/dL (8-23) 06/23/22 10:38 Creatinine 0.8 mg/dL (0.5-0.9) 06/23/22 10:38 GFR Calculation 73.2 mL/min (90-130) L 06/23/22 10:38 Glucose 102 mg/dL (65-115) 06/23/22 10:38 Calculated Osmolality 290 mOsm/kg (285-295) 06/23/22 10:38 Calcium 9.3 mg/dL (8.5-10.5) 06/23/22 10:38 Total Bilirubin 0.4 mg/dL (0.15-1.2) 06/23/22 10:38 AST 15 U/L (0-32) 06/23/22 10:38 ALT 15 U/L (0-33) 06/23/22 10:38 Alkaline Phosphatase 98 U/L (35-105) 06/23/22 10:38 Total Protein 7.5 g/dL (6.6-8.7) 06/23/22 10:38 Albumin 4.6 g/dL (3.5-5.2) 06/23/22 10:38 Globulin 2.9 g/dL (1.3-4.6) 06/23/22 10:38 Lipase 29 U/L (13-60) 06/23/22 10:38 Urine Color Straw (Yellow) 06/23/22 10:30 Urine Appearance Clear (CLEAR) 06/23/22 10:30 Urine pH 5 (5-7) 06/23/22 10:30 Ur Specific [place] 1.005 (1.005-1.030) 06/23/22 10:30 Urine Protein Neg (Negative) 06/23/22 10:30 Urine Glucose (UA) Norm (Normal) 06/23/22 10:30 Urine Ketones Negative (Negative) 06/23/22 10:30 Urine Blood Neg (Negative) 06/23/22 10:30 Urine Nitrate Negative (Negative) 06/23/22 10:30 Urine Bilirubin Neg (Negative) 06/23/22 10:30 Urine Urobilinogen Norm mg/dL (Negative) 06/23/22 10:30 Ur Leukocyte Esterase Negative (Negative) 06/23/22 10:30 Discharge Plan Discharge Patient Disposition: Home Clinical Impression: Abdominal pain Condition: Stable Prescriptions: No Action albuterol sulfate [Ventolin HFA] 90 mcg/actuation HFA aerosol inhaler 2 puff INHALATION TID PRN (Reason: Shortness Of Breath) Qvar RediHaler 80 mcg/actuation HFA aerosol breath activated 2 inh INHALATION BID PRN (Reason: Allergy Symptoms) cholecalciferol (vitamin D3) 125 mcg (5,000 unit) capsule 125 mcg PO DAILY Qty: 30 0RF promethazine-DM 6.25-15 mg/5 mL syrup 5 - 10 ml PO Q6H PRN (Reason: cough) Qty: 200 0RF valerian root 500 mg Capsule 500 mg PO BEDTIME PRN (Reason: Sleep) Zofran 4 mg Tablet 4 mg PO Q6H PRN (Reason: Nausea) ibuprofen 200 mg Tablet 400 mg PO Q6H PRN (Reason: Pain) melatonin 5 mg Tablet 5 - 10 mg PO BEDTIME PRN (Reason: Sleep) krill oil 500 mg Capsule 1,000 mg PO DAILY levothyroxine 50 mcg tablet 50 mcg PO QAM multivitamin Tablet 1 tab PO DAILY Discharge Orders: Discharge ED (Routine); Ordered 06/23/22 Ordered By: Juan Diego Marley Referrals: Alcon Meyer, ENGINEERING TECHNICAL SPECIALIST-C [Primary Care Provider] - Discharge Diet: Clear Liquid Discharge Activity: Increase activity as tolerated Patient Instructions: Abdominal Pain (ED), Opioid Safety Coding Level of Care Code ED Assembler Trim for Coleen Stevenson
[2022-06-23 10:42] LABS: Add Urine Microscopic? NO; Charge for UA Resulting for Rev
[2022-06-23 10:52] LABS: Basophils % 0.3 %; Eosinophils % 0.3 %; Hemoglobin 11.4 g/dL (11.5-15.3); Lymphocytes # 1.5 10^3/uL (0.8-4.8); Lymphocytes % 41.3 %; Mean Corpuscular HGB Conc 32.6 g/dL (30.0-36.0); Mean Corpuscular Hemoglobin 28.8 pg (28.0-34.0); Mean Corpuscular Volume 88.4 fl (81-99); Monocytes # 0.4 10^3/uL (0.2-0.9); Monocytes % 9.7 %; Neutrophils # 1.79 10^3/uL (1.8-7.7); Neutrophils % 47.9 %; Nucleated Red Blood Cells % 0 %; Platelet Count 145 10^3/cmm (130-400); Red Blood Count 3.96 10^6/uL (4.1-5.3); Red Cell Distribution Width 12.3 % (12.1-15.1); White Blood Count 3.7 10^3/uL (4.0-10.0)
[2022-06-23 10:56] LABS: Bilirubin Urine Neg (Negative); Blood Urine Neg (Negative); Glucose Urine UA Norm (Normal); Ketones Urine Negative (Negative); Leukocyte Esterase Urine Negative (Negative); Nitrate Urine Negative (Negative); Protein Urine Neg (Negative); Specific Gravity, Urine 1.005 (1.005-1.030); Urine Appearance Clear (CLEAR); Urine Color Straw (Yellow); Urobilinogen Urine Norm (Negative); pH Urine 5 (5-7)
[2022-06-23 11:15] LABS: Alanine Aminotransferase 15 U/L (0-33); Albumin Level 4.6 g/dL (3.5-5.2); Alkaline Phosphatase 98 U/L (35-105); Anion Gap 14.5 (5-19); Aspartate Amino Transferase 15 U/L (0-32); Blood Urea Nitrogen 17 mg/dL (8-23); Calcium 9.3 mg/dL (8.5-10.5); Carbon Dioxide 26 mmol/L (22-29); Chloride 103 mmol/L (98-107); Globulin 2.9 g/dL (1.3-4.6); Glomerular Filtration Rate 73.2 mL/min (90-130); Glucose 102 mg/dL (65-115); Lipase 29 U/L (13-60); Osmolality Calculated 290 mOsm/kg (285-295); Potassium 4.5 mmol/L (3.5-5.1); Sodium 139 mmol/L (136-145); Total Bilirubin 0.4 mg/dL (0.15-1.2); Total Protein 7.5 g/dL (6.6-8.7)
--- NOTE | 2022-06-23 13:09 | CT_ITS ---
WS: [id number] CT ABDOMEN PELVIS TECHNIQUE: Noncontrast CT of the abdomen and pelvis with coronal and sagittal reformatted images. CLINICAL INFORMATION: Abdominal pain COMPARISON: None. DLP: [facility] least one of these dose optimization techniques: automated e xposure control; mA and/or kV adjustment per patient size (includes targeted exams where dose is matc hed to clinical indication); or iterative reconstruction. FINDINGS: Lung bases are well aerated. Noncontrast liver is normal. Normal noncontrast spleen. Normal GE juncti on. Noncontrast pancreas is normal. Adrenal glands are normal. No obstructing renal or ureteral calcu li. Incidental pelvic phleboliths. Normal appendix in the RIGHT lower quadrant. Normal caliber abdominal aorta. Fat-containing umbilical hernia. A few sigmoid diverticuli. No eviden ce of acute diverticulitis. No abdominal or pelvic lymphadenopathy. Prior hysterectomy. CT/CT abdomen pelvis con [id number] IMPRESSION: No acute abdominal or pelvic findings.
== END 2022-06-23 15:25 | disposition home or self-care (01) ==
PROVIDERS: Emergency Provider Family Medicine; PCP Nurse Practitioner
DX: R10.9 Unspecified abdominal pain (principal)
CPT/HCPCS: 74176; 80053; 81003; 83690; 85025; 99284

== ENCOUNTER 2022-11-15 20:44 | Emergency (ER) | payer BC, SELFPAY ==
[2022-11-15 20:56] VITALS: PULSE 85; RESP 16; TEMP 36.7; O2SAT 98; BMI 28.6
--- NOTE | 2022-11-15 21:07 | ED_ITS ---
HPI - Extremity Problem General: Chief complaint: Extremity Injury, Upper Stated complaint: Right wrist injury Time Seen by Provider: 11/15/22 21:05 History of Present Illness: 62-year-old female comes in today for injury to the right wrist. On exam patient has some dorsal swelling to the right wrist area. Cap refill is intact. Patient reports significant pain. Incident occurred about 20 minutes prior to arrival to the ER. Patient reports she was skating and went to go to the concession stand slipped causing her to fall backward and caught herself with outstretched arm. Review of Systems Musc: Reports: extremity pain and extremity swelling [facility] ED PFSH: Medical History Adult onset hypothyroidism Chronic leukopenia History of anemia History of depression Vitamin D deficiency Surgical History H/O right inguinal hernia repair History of colonoscopy with polypectomy (08/13/20) History of dilation and curettage 2003,2005 History of hysterectomy partial 2008 Family History Grandfather CAD (coronary artery disease) Cancer kidney cancer Stroke Brother CAD (coronary artery disease) Father Lung disease Psychiatric illness Family/Other Psychiatric illness Grandmother Stroke Other Anesthesia complication Diabetes FH: CVA (cerebrovascular accident) Hypertension Denies family history of Clotting disorder Dementia Hyperlipidemia Suicide Bleeding disorder Social History Smoking and tobacco status: never smoked Second hand smoke exposure: No Smoking risk assessment/counseling performed?: No Alcohol intake: never Desire information about alcohol rehabilitation?: No Counseling given: No Desire information about substance/drug rehabilitation?: No Counseling given: No Adopted: No Caregiver/support person: No Lives independently: Yes Marital status: Single Number of children: 3 service: No Current occupational exposures/hazards: No History of recent travel: No Current gender identity: Female Physical Exam Const: COMMON NORMALS: alert HENMT: COMMON NORMALS: normocephalic HEAD & SCALP: normocephalic Neck/C-Spine: COMMON NORMALS: full ROM Resp: COMMON NORMALS: normal respiratory effort Cardio: COMMON NORMALS: regular rate RATE: regular rate Extremity: RIGHT UPPER EXTREMITY: Yes wrist (Swelling noted to the dorsal wrist, distal cap refill is intact.) Right wrist: Yes inspection, Yes palpation (Dorsal swelling) and Yes ROM (Limited due to pain) Neuro: SENSORIUM/ORIENTATION: Yes alert Course Vital Signs: Vital signs: Vital Signs Temperature 98.1 F 11/15/22 20:56 Pulse Rate 85 11/15/22 20:56 Respiratory Rate 16 11/15/22 20:56 Pulse Oximetry 98 11/15/22 20:56 Oxygen Delivery Me thod 11/15/22 20:56 MDM - Extremity (Nontraumatic) Medical Decision Making Patient comes in for evaluation of injury from fall while at the skating rink. On exam patient has some swelling to the radial aspect of the distal forearm on the right side. Cap refill is intact distally. Sensation is intact distally. Differential diagnosis includes sprain, fracture, dislocation. X-ray noted comminuted fracture of the distal radius. Patient was placed in a short arm splint with recommendation for follow-up with orthopedics. Case management was requested to help with orthopedic referral. Patient reported understanding agr eed to plan. Discharge Plan Discharge Patient Disposition: Home Clinical Impression: Distal radial fracture Condition: Stable Prescriptions: New hydrocodone-acetaminophen 5-325 mg tablet 1 tab PO Q6H PRN (Reason: pain (scale score 7-10)) Qty: 14 0RF No Action albuterol sulfate [Ventolin HFA] 90 mcg/actuation HFA aerosol inhaler 2 puff INHALATION TID PRN (Reason: Shortness Of Breath) Qvar RediHaler 80 mcg/actuation HFA aerosol breath activated 2 inh INHALATION BID PRN (Reason: Allergy Symptoms) cholecalciferol (vitamin D3) 125 mcg (5,000 unit) capsule 125 mcg PO DAILY Qty: 30 0RF promethazine-DM 6.25-15 mg/5 mL syrup 5 - 10 ml PO Q6H PRN (Reason: cough) Qty: 200 0RF valerian root 500 mg Capsule 500 mg PO BEDTIME PRN (Reason: Sleep) Zofran 4 mg Tablet 4 mg PO Q6H PRN (Reason: Nausea) ibuprofen 200 mg Tablet 400 mg PO Q6H PRN (Reason: Pain) melatonin 5 mg Tablet 5 - 10 mg PO BEDTIME PRN (Reason: Sleep) krill oil 500 mg Capsule 1,000 mg PO DAILY levothyroxine 50 mcg tablet 50 mcg PO QAM multivitamin Tablet 1 tab PO DAILY Discharge Orders: Discharge ED (Routine); Ordered 11/15/22 Ordered By: Wilfrid Zuñiga Referrals: Alcon Meyer, BUILDING OFFICIAL-C [Primary Care Provider] - Discharge Diet: Usual diet Discharge Activity: Increase activity as tolerated Patient Instructions: Wrist Fracture in Adults (ED), Opioid Safety Activity Restrictions/Additional Instructions: Keep splint clean and dry. Use sling for comfort and support. Use acetaminophen and ibuprofen to control pain. Use hydrocodone for severe pain. Use ice packs for further pain relief. Case management will contact you regarding follow-up appointment with orthopedics for further evaluation and treatment. Return to ED for new concerns. Coding Level of Care Code ED Chef Broiler Or Fry for Coleen Fwd Exam Detailed
--- NOTE | 2022-11-15 21:10 | XRR_ITS ---
PROCEDURE INFORMATION: Exam: XR Right Wrist Exam date and time: 11/15/2022 9:14 PM Age: 62 years old Clinical indication: Pain; Wrist; Right; Additional info: Injury TECHNIQUE: Imaging protocol: Radiologic exam of the Right wrist. Views: 3 or more views. COMPARISON: No relevant prior studies available. FINDINGS: Bones/joints: Comminuted and impacted distal right radius fracture with mild radial displacement of the major fracture fragment. Additional age-indeterminate avulsion fracture present in the ulnar styloid process. Soft tissues: Mild surrounding soft tissue swelling. XR/XR wrist RT min 3V* [id number] IMPRESSION: 1. Comminuted and impacted distal right radius fracture. 2. Additional age-indeterminate avulsion fracture of the ulnar styloid process.
[2022-11-15] MEDS: HYDROcodone-acetaminophen 10-325 mg Tablet 1 TAB PO (21:18)
--- NOTE | 2022-11-17 09:59 | DCPLANNER ---
Addendum entered by Isabel Almazan 11/21/22 13:01: avionics manager received the following message from the ortho clinic regarding follow up appointment: attempt made to contact patient -left vm and mailed letter to contact our clinic to scheduled w/ michelle guardado Original Note: avionics manager had message to schedule a follow up appointment for patient with ortho. avionics manager sent patients information to the front office staff at ortho. Patients information will be printed and reviewed. Clinic will call patient with appointment information.
== END 2022-11-15 22:10 | disposition home or self-care (01) ==
PROVIDERS: Emergency Provider Nurse Practitioner Family; PCP Nurse Practitioner
DX: S52.591A Other fractures of lower end of right radius, initial encounter for closed fracture (principal); W01.0XXA Fall on same level from slipping, tripping and stumbling without subsequent striking against object, initial encounter; Y93.51 Activity, roller skating (inline) and skateboarding; Y92.331 Roller skating rink as the place of occurrence of the external cause
CPT/HCPCS: 29125; 73110; 99283

== ENCOUNTER → 2022-11-19 10:46 | Outpatient (BNVA) | payer BC, SELFPAY | PROVIDERS: PCP Nurse Practitioner; Visit Provider Nurse Practitioner | DX: E55.9 Vitamin D deficiency, unspecified (principal); E03.8 Other specified hypothyroidism; D72.819 Decreased white blood cell count, unspecified | CPT/HCPCS: 80053; 82306; 82607; 84443; 85025 ==

== ENCOUNTER → 2023-07-20 14:52 | Outpatient (BNVA) | payer BC, SELFPAY | PROVIDERS: PCP Nurse Practitioner; Visit Provider Nurse Practitioner | DX: E03.8 Other specified hypothyroidism (principal) | CPT/HCPCS: 80053; 84439; 84443; 84481 ==

== ENCOUNTER → 2024-11-10 14:46 | Outpatient (BNVA) | payer OTHER, SELFPAY | PROVIDERS: PCP Nurse Practitioner; Visit Provider Clinical Nurse Specialist Adult Health | DX: J06.9 Acute upper respiratory infection, unspecified (principal) | CPT/HCPCS: 87400 ==

== ENCOUNTER → 2025-01-31 09:16 | Outpatient (BNVA) | payer OTHER, SELFPAY | PROVIDERS: PCP Nurse Practitioner; Visit Provider Nurse Practitioner | DX: E03.8 Other specified hypothyroidism (principal); E55.9 Vitamin D deficiency, unspecified; Z12.31 Encounter for screening mammogram for malignant neoplasm of breast | CPT/HCPCS: 80053; 80061; 82306; 84443 ==

== ENCOUNTER 2025-03-14 09:38 | Outpatient (CLI) | payer OTHER, SELFPAY ==
--- NOTE | 2025-03-14 09:40 | MM_ITS ---
WS: [id number] VIEWS: MLO and CC views both breasts. 3D digital tomosynthesis is also included in this exam. Comparison made with prior exam of 06/19/2015, 07/15/2017, 08/20/2020.. Findings: The breasts are heterogeneously dense, which may obscure small masses. No sign of suspicious mass, tumor calcification or architectural distortion. MM/MM scr BI tomosynthesis [id number] Impression: BI-RADS: 2 - Benign FOLLOW-UP: 1 Year Follow-up This mammogram was also analyzed by the Computer Aided Detection System R2 Imag e Associate Chief Nurse.
== END 2025-03-14 09:39 | disposition home or self-care (01) ==
LOC: MOBLMAM 09:43
PROVIDERS: PCP Nurse Practitioner; Visit Provider Nurse Practitioner
DX: Z12.31 Encounter for screening mammogram for malignant neoplasm of breast (principal); R92.333 Mammographic heterogeneous density, bilateral breasts
CPT/HCPCS: 77063; 77067

== ENCOUNTER → 2025-04-18 11:19 | Outpatient (BNVA) | payer OTHER, SELFPAY | PROVIDERS: PCP Nurse Practitioner; Visit Provider Internal Medicine | DX: I10 Essential (primary) hypertension (principal); D64.9 Anemia, unspecified; R03.0 Elevated blood-pressure reading, without diagnosis of hypertension; E55.9 Vitamin D deficiency, unspecified; E03.8 Other specified hypothyroidism | CPT/HCPCS: 36415; 82607; 82746; 83036 ==